=== PATIENT | female | born 1955 | race African-American/Black ===

== ENCOUNTER 2017-01-21 12:36 | Inpatient (IN) | payer SELFPAY ==
[~2017-01-21] VITALS: Ht 165.1 cm; Wt 87.8 kg
[~2017-01-21 12:36] MED LIST: OLAN10TA3 PO; RISP1 PO
[2017-01-21 13:24] LABS: BASOPHILS # (AUTO) 0.09 K/uL (0.00-0.20); BASOPHILS % (AUTO) 2.4 % (0.0-2.0); EOSINOPHILS % (AUTO) 2.77 % (1.0-6.0); HEMATOCRIT 42.1 % (36-46); HEMOGLOBIN 13.9 g/dL (12.0-16.0); LYMPHOCYTES # (AUTO) 1.3 K/uL (1.0-4.8); LYMPHOCYTES % (AUTO) 35.6 % (22.0-44.0); MEAN CORPUSCULAR HEMOGLOBIN 29.2 pg (26.0-34.0); MEAN CORPUSCULAR VOLUME 88 fL (80-100); MONOCYTES # (AUTO) 0.3 K/uL (0.1-1.0); MONOCYTES % (AUTO) 7.5 % (2.0-9.0); NEUTROPHILS # (AUTO) 1.9 K/uL (1.8-7.7); NEUTROPHILS % (AUTO) 51.7 % (40.0-70.0); PLATELET COUNT (AUTO) 273 K/uL (150-450); RED BLOOD CELL COUNT(AUTO) 4.76 MIL/uL (4.00-5.20); RED CELL DISTRIBUTION WIDTH 15.5 % (11.5-14.5); WHITE BLOOD COUNT (AUTO) 3.7 K/uL (4.5-11.0)
[2017-01-21 13:33] LABS: SALICYLATE 4.3 mg/dL (2.8-20.0)
[2017-01-21 13:34] LABS: ANION GAP 7 mmol/L (8-16); CALCIUM, TOTAL 9.6 mg/dL (8.8-10.5); CARBON DIOXIDE 26 mmol/L (22-29); CHLORIDE 106 mmol/L (98-107); CREATININE 0.74 mg/dL (0.60-1.30); GLOMERULAR FILTR. RATE CALC > 60 mL/min (>60); POTASSIUM 3.9 mmol/L (3.5-5.1); SODIUM SERUM 139 mmol/L (136-145); UREA NITROGEN, BLOOD 19 mg/dL (7-18)
[2017-01-21 13:44] LABS: TROPONIN I < 0.02 ng/mL (0.00-0.05)
[2017-01-21 13:48] LABS: B-TYPE NATRIURETIC PEPTIDE 11 pg/mL (0-100)
[2017-01-21 13:52] LABS: APPEARANCE,URINE CLEAR (CLEAR); GLUCOSE, URINE (UA) NEGATIVE (NEGATIVE); KETONES,URINE NEGATIVE (NEGATIVE); LEUKOCYTE ESTERASE ,URINE NEGATIVE (NEGATIVE); OCCULT BLOOD,URINE NEGATIVE (NEGATIVE); PH,URINE 5.5 (5.0-8.0); PROTEIN,URINE NEGATIVE (NEGATIVE)
[2017-01-21 13:54] LABS: ADD UA MICROSCOPIC NO
[2017-01-21 13:59] LABS: ALANINE AMINOTRANSFERASE 18 U/L (12-78); ALBUMIN 3.4 g/dL (3.4-5.0); AMMONIA 31 umol/L (11-32); ASPARTATE AMINOTRANSFERASE 15 U/L (15-37); BILIRUBIN,TOTAL 0.3 mg/dL (0.1-1.0); CREATINE KINASE MB 1.1 ng/mL (0-5); CREATINE KINASE, TOTAL 86 U/L (26-192); TOTAL PROTEIN, SERUM 7.2 g/dL (6.4-8.2)
[2017-01-21 14:13] LABS: ACETAMINOPHEN < 2 mcg/mL (10-30)
[2017-01-21] MEDS ORDERED: ACETAMINOPHEN 325 MG TABLET PO PRN ×2 (15:15→18:15)
[2017-01-21] MEDS ORDERED: 0.9% SODIUM CHLORIDE 10 ML SYRINGE IVP PRN (15:15)
[2017-01-21] MEDS ORDERED: ONDANSETRON HCL 4 MG/2 ML VIAL IVP PRN ×2 (15:15→18:15)
[2017-01-21 21:51] VITALS: BP 149/96
[2017-01-22 00:04] VITALS: BP 148/71
[2017-01-22 04:47] VITALS: BP 149/82
[2017-01-22 08:00] VITALS: BP 130/100
[2017-01-22] MEDS ORDERED: IBUPROFEN 400 MG TABLET PO PRN (09:30)
[2017-01-22 11:24] LABS: APPEARANCE,URINE CLOUDY (CLEAR); GLUCOSE, URINE (UA) NEGATIVE (NEGATIVE); KETONES,URINE NEGATIVE (NEGATIVE); LEUKOCYTE ESTERASE ,URINE TRACE (NEGATIVE); OCCULT BLOOD,URINE MODERATE (NEGATIVE); PH,URINE 5.5 (5.0-8.0); PROTEIN,URINE TRACE (NEGATIVE)
[2017-01-22] MEDS: PANTOPRAZOLE SODIUM 40 MG DR TABLET PO SCH (11:53)
[2017-01-22] MEDS: RisperiDONE 1 MG TABLET PO SCH ×2 (11:53→19:58)
[2017-01-22] MEDS: HEPARIN SODIUM,PORCINE 5,000 UNITS/ML VIAL SQ SCH ×4 (11:53→23:48)
[2017-01-22 13:22] LABS: ADD UA MICROSCOPIC YES
[2017-01-22 13:26] LABS: SQUAMOUS EPITHELIAL CELL,UR Rare /LPF (None Seen)
[2017-01-22 13:31] VITALS: BP 96/58
[2017-01-22 18:13] VITALS: BP 128/82
[2017-01-22 19:15] VITALS: BP 108/71
[2017-01-22] MEDS: OLANZapine 10 MG TABLET PO SCH (19:58)
[2017-01-23 06:11] VITALS: BP 121/79
[2017-01-23 06:40] LABS: BASOPHILS % (AUTO) 0.5 % (0.0-2.0); EOSINOPHILS % (AUTO) 2.4 % (1.0-6.0); HEMATOCRIT 38.8 % (36-46); HEMOGLOBIN 12.3 g/dL (12.0-16.0); LYMPHOCYTES # (AUTO) 1.6 K/uL (1.0-4.8); LYMPHOCYTES % (AUTO) 39.2 % (22.0-44.0); MEAN CORPUSCULAR HEMOGLOBIN 28.6 pg (26.0-34.0); MEAN CORPUSCULAR HGB CONC 31.8 G/dL (31.0-37.0); MEAN CORPUSCULAR VOLUME 90 fL (80-100); MONOCYTES # (AUTO) 0.4 K/uL (0.1-1.0); MONOCYTES % (AUTO) 8.9 % (2.0-9.0); PLATELET COUNT (AUTO) 269 K/uL (150-450); RED CELL DISTRIBUTION WIDTH 15.1 % (11.5-14.5); WHITE BLOOD COUNT (AUTO) 4.2 K/uL (4.5-11.0)
[2017-01-23 07:08] LABS: ALANINE AMINOTRANSFERASE 13 U/L (12-78); ALBUMIN 2.7 g/dL (3.4-5.0); ANION GAP 7 mmol/L (8-16); ASPARTATE AMINOTRANSFERASE 7 U/L (15-37); BILIRUBIN,TOTAL 0.1 mg/dL (0.1-1.0); CALCIUM, TOTAL 9.2 mg/dL (8.8-10.5); CARBON DIOXIDE 27 mmol/L (22-29); CHLORIDE 109 mmol/L (98-107); CHOL/HDL RATIO 2.6 (3.9-5.7); CREATININE 0.92 mg/dL (0.60-1.30); GLOMERULAR FILTR. RATE CALC > 60 mL/min (>60); POTASSIUM 4.2 mmol/L (3.5-5.1); SODIUM SERUM 143 mmol/L (136-145); THYROID STIMULATING HORMONE 2.47 uIU/mL (0.36-3.74); TOTAL PROTEIN, SERUM 6.1 g/dL (6.4-8.2); UREA NITROGEN, BLOOD 20 mg/dL (7-18)
[2017-01-23 07:29] VITALS: BP 112/68
[2017-01-23] MEDS: HEPARIN SODIUM,PORCINE 5,000 UNITS/ML VIAL SQ SCH ×3 (08:04→23:39)
[2017-01-23] MEDS: OxyCODONE HCL/ACETAMINOPHEN 5-325 MG TABLET PO PRN ×2 (08:04→16:27)
[2017-01-23] MEDS: RisperiDONE 1 MG TABLET PO SCH ×2 (08:04→20:06)
[2017-01-23] MEDS: PANTOPRAZOLE SODIUM 40 MG DR TABLET PO SCH (08:04)
[2017-01-23 11:04] VITALS: BP 108/77
[2017-01-23 15:16] VITALS: BP 116/76
[2017-01-23 20:04] VITALS: BP 111/72
[2017-01-23] MEDS: OLANZapine 10 MG TABLET PO SCH (20:06)
[2017-01-24 05:26] VITALS: BP 119/70
[2017-01-24] MEDS: HEPARIN SODIUM,PORCINE 5,000 UNITS/ML VIAL SQ SCH ×3 (08:58→22:52)
[2017-01-24] MEDS: PANTOPRAZOLE SODIUM 40 MG DR TABLET PO SCH (08:58)
[2017-01-24] MEDS: RisperiDONE 1 MG TABLET PO SCH ×2 (08:58→22:52)
[2017-01-24 09:03] VITALS: BP 131/80
[2017-01-24 12:01] VITALS: BP 127/79
[2017-01-24 15:56] VITALS: BP 121/75
[2017-01-24] MEDS: OLANZapine 10 MG TABLET PO SCH (22:52)
[2017-01-24 22:57] VITALS: BP 144/96
[2017-01-25 04:56] VITALS: BP 133/90
[2017-01-25 08:14] VITALS: BP 132/80
[2017-01-25] MEDS: RisperiDONE 1 MG TABLET PO SCH (08:17)
[2017-01-25] MEDS: HEPARIN SODIUM,PORCINE 5,000 UNITS/ML VIAL SQ SCH (08:17)
[2017-01-25] MEDS: PANTOPRAZOLE SODIUM 40 MG DR TABLET PO SCH (08:17)
[2017-01-25 11:56] VITALS: BP 123/87
== END 2017-01-25 14:37 | disposition home or self-care (01) | DRG 92 ==
LOC: EMS 12:37 → 5S 18:27 → 6N 01-22 19:15
PROVIDERS: ADMIT Hospitalist; ATTEND Hospitalist
DX: G92 Toxic encephalopathy (principal); F20.0 Paranoid schizophrenia; F12.90 Cannabis use, unspecified, uncomplicated; F19.10 Other psychoactive substance abuse, uncomplicated; R41.82 Altered mental status, unspecified; I10 Essential (primary) hypertension; Z59.0 Homelessness; Z79.899 Other long term (current) drug therapy; Z91.19 Patient's noncompliance with other medical treatment and regimen
CPT/HCPCS: 51702; 70450; 80307; 83036; 84443; 93005; 99291; G0480; G0481; J1644

== ENCOUNTER 2017-03-11 09:06 | Inpatient (IN) | payer MEDICAID ==
[~2017-03-11] VITALS: Ht 177.8 cm; Wt 92.5 kg
[2017-03-11 09:22] LABS: BASOPHILS % (AUTO) 0.4 % (0.0-2.0); EOSINOPHILS % (AUTO) 1.7 % (1.0-6.0); HEMOGLOBIN 12.5 g/dL (12.0-16.0); LYMPHOCYTES # (AUTO) 1.9 K/uL (1.0-4.8); LYMPHOCYTES % (AUTO) 25.4 % (22.0-44.0); MEAN CORPUSCULAR HGB CONC 32.1 G/dL (31.0-37.0); MEAN CORPUSCULAR VOLUME 87 fL (80-100); MONOCYTES # (AUTO) 0.3 K/uL (0.1-1.0); MONOCYTES % (AUTO) 4.5 % (2.0-9.0); PLATELET COUNT (AUTO) 241 K/uL (150-450); RED BLOOD CELL COUNT(AUTO) 4.47 MIL/uL (4.00-5.20); RED CELL DISTRIBUTION WIDTH 16.7 % (11.5-14.5); WHITE BLOOD COUNT (AUTO) 7.3 K/uL (4.5-11.0)
[2017-03-11 09:32] LABS: ANION GAP 10 mmol/L (8-16); CALCIUM, TOTAL 9.4 mg/dL (8.8-10.5); CARBON DIOXIDE 27 mmol/L (22-29); CHLORIDE 108 mmol/L (98-107); CREATININE 0.84 mg/dL (0.60-1.30); GLOMERULAR FILTR. RATE CALC > 60 mL/min (>60); POTASSIUM 3.8 mmol/L (3.5-5.1); SODIUM SERUM 145 mmol/L (136-145); UREA NITROGEN, BLOOD 24 mg/dL (7-18)
[2017-03-11 09:38] LABS: ALANINE AMINOTRANSFERASE 63 U/L (12-78); ALBUMIN 3.9 g/dL (3.4-5.0); ASPARTATE AMINOTRANSFERASE 27 U/L (15-37); BILIRUBIN,TOTAL 0.2 mg/dL (0.1-1.0); TOTAL PROTEIN, SERUM 7.8 g/dL (6.4-8.2)
[2017-03-11] MEDS ORDERED: HALOPERIDOL LACTATE 5 MG/ML VIAL IM ONE (11:00)
[2017-03-11] MEDS ORDERED: DiphenhydrAMINE HCL 50 MG/ML VIAL IM ONE (11:00)
[2017-03-11] MEDS ORDERED: LORazepam 2 MG/ML VIAL IM ONE (11:00)
[2017-03-11 16:14] VITALS: BP 136/88
[2017-03-11] MEDS: LORazepam 1 MG TABLET PO PRN (16:23)
[2017-03-11] MEDS: HALOPERIDOL 5 MG TABLET PO PRN (16:23)
[2017-03-11] MEDS ORDERED: IVERMECTIN 3 MG TABLET PO ONE (17:30)
[2017-03-11] MEDS: OLANZapine 10 MG TABLET PO SCH (20:33)
[2017-03-12 07:11] VITALS: BP 126/80
[2017-03-12] MEDS: HALOPERIDOL 5 MG TABLET PO PRN ×2 (08:16→16:42)
[2017-03-12] MEDS: LORazepam 1 MG TABLET PO PRN ×2 (08:16→16:42)
[2017-03-12] MEDS ORDERED: MAGNESIUM HYDROXIDE SUSPENSION 30 ML UDCUP PO PRN (09:00)
[2017-03-12] MEDS ORDERED: BACITRACIN 28.4 GM OINTMENT TP PRN (09:00)
[2017-03-12] MEDS ORDERED: MAG HYDROX/AL HYDROX/SIMETH ES 30 ML SUSPENSION UDCUP PO PRN (09:00)
[2017-03-12] MEDS ORDERED: ONDANSETRON HCL 4 MG TABLET PO PRN (09:00)
[2017-03-12] MEDS ORDERED: IBUPROFEN 600 MG TABLET PO PRN (09:00)
[2017-03-12] MEDS ORDERED: LOPERAMIDE HCL 2 MG CAPSULE PO PRN (09:00)
[2017-03-12] MEDS ORDERED: PETROLATUM,WHITE 71 GM JELLY TP PRN (09:00)
[2017-03-12] MEDS ORDERED: CloNIDine HCL 0.1 MG TABLET PO PRN (09:00)
[2017-03-12 09:17] LABS: CHOL/HDL RATIO 2.1 (3.9-5.7)
[2017-03-12 16:35] VITALS: BP 123/79
[2017-03-12] MEDS: TERBINAFINE HCL 1% 30 GM CREAM TP SCH (16:36)
[2017-03-12] MEDS: MAGNESIUM SULFATE 454 GM BOX TP SCH (16:36)
[2017-03-12] MEDS ORDERED: RisperiDONE 1 MG TABLET PO SCH (17:00)
[2017-03-12] MEDS: OLANZapine 10 MG TABLET PO SCH (20:06)
[2017-03-13 06:26] VITALS: BP 119/72
[2017-03-13] MEDS: LISINOPRIL 5 MG TABLET PO SCH (08:10)
[2017-03-13] MEDS: LORazepam 1 MG TABLET PO PRN ×2 (08:10→15:58)
[2017-03-13] MEDS: TERBINAFINE HCL 1% 30 GM CREAM TP SCH ×2 (08:10→16:39)
[2017-03-13] MEDS: HALOPERIDOL 5 MG TABLET PO PRN (08:10)
[2017-03-13] MEDS: MAGNESIUM SULFATE 454 GM BOX TP SCH (08:10)
[2017-03-13 08:38] VITALS: BP 125/72
[2017-03-13 16:49] VITALS: BP 128/70
[2017-03-13] MEDS: ACETAMINOPHEN 325 MG TABLET PO PRN (16:51)
[2017-03-13] MEDS: OLANZapine 10 MG TABLET PO SCH (20:37)
[2017-03-14] MEDS: BENZOCAINE/MENTHOL LOZENGE MM PRN ×2 (01:56→16:24)
[2017-03-14 06:45] VITALS: BP 138/98
[2017-03-14 08:47] VITALS: BP 134/87
[2017-03-14] MEDS: TERBINAFINE HCL 1% 30 GM CREAM TP SCH ×2 (08:56→16:26)
[2017-03-14] MEDS: LISINOPRIL 5 MG TABLET PO SCH (08:57)
[2017-03-14] MEDS: LORazepam 1 MG TABLET PO PRN ×2 (08:57→16:24)
[2017-03-14] MEDS: HALOPERIDOL 5 MG TABLET PO PRN (08:57)
[2017-03-14] MEDS: MAGNESIUM SULFATE 454 GM BOX TP SCH (08:57)
[2017-03-14 16:09] VITALS: BP 141/89
[2017-03-14] MEDS: ALBUTEROL SULFATE HFA 90 MCG/PUFF 8 GM INHALER IH PRN (16:26)
[2017-03-14] MEDS: OLANZapine 10 MG TABLET PO SCH (20:06)
[2017-03-15 00:42] VITALS: BP 142/87
[2017-03-15] MEDS: ZOLPIDEM TARTRATE 10 MG TABLET PO PRN (00:43)
[2017-03-15] MEDS: ALBUTEROL SULFATE HFA 90 MCG/PUFF 8 GM INHALER IH PRN (06:20)
[2017-03-15 08:41] VITALS: BP 135/79
[2017-03-15] MEDS: MAGNESIUM SULFATE 454 GM BOX TP SCH (09:00)
[2017-03-15] MEDS: LISINOPRIL 5 MG TABLET PO SCH (09:04)
[2017-03-15] MEDS: DIVALPROEX SODIUM 250 MG ER TABLET PO SCH ×2 (09:04→17:32)
[2017-03-15] MEDS: TERBINAFINE HCL 1% 30 GM CREAM TP SCH ×2 (09:05→17:32)
[2017-03-15 16:00] VITALS: BP 141/75
[2017-03-15] MEDS: OLANZapine 10 MG TABLET PO SCH ×2 (20:50→20:55)
[2017-03-16 06:50] VITALS: BP 139/84
[2017-03-16 08:48] VITALS: BP 139/78
[2017-03-16] MEDS: LISINOPRIL 5 MG TABLET PO SCH (08:55)
[2017-03-16] MEDS: DIVALPROEX SODIUM 250 MG ER TABLET PO SCH ×2 (08:55→16:01)
[2017-03-16] MEDS: TERBINAFINE HCL 1% 30 GM CREAM TP SCH ×2 (08:56→16:01)
[2017-03-16] MEDS: MAGNESIUM SULFATE 454 GM BOX TP SCH (08:59)
[2017-03-16 16:00] VITALS: BP 112/68
[2017-03-16] MEDS: LORazepam 1 MG TABLET PO PRN (16:01)
[2017-03-16] MEDS: OLANZapine 10 MG TABLET PO SCH (20:23)
[2017-03-16] MEDS: ZOLPIDEM TARTRATE 10 MG TABLET PO PRN (21:03)
[2017-03-17 08:12] LABS: BASOPHILS % (AUTO) 0.4 % (0.0-2.0); EOSINOPHILS % (AUTO) 3.8 % (1.0-6.0); HEMATOCRIT 43.6 % (36-46); HEMOGLOBIN 13.9 g/dL (12.0-16.0); LYMPHOCYTES # (AUTO) 1.5 K/uL (1.0-4.8); LYMPHOCYTES % (AUTO) 34.7 % (22.0-44.0); MEAN CORPUSCULAR HEMOGLOBIN 28.1 pg (26.0-34.0); MEAN CORPUSCULAR HGB CONC 31.9 G/dL (31.0-37.0); MEAN CORPUSCULAR VOLUME 88 fL (80-100); MONOCYTES # (AUTO) 0.3 K/uL (0.1-1.0); MONOCYTES % (AUTO) 6.1 % (2.0-9.0); NEUTROPHILS # (AUTO) 2.4 K/uL (1.8-7.7); PLATELET COUNT (AUTO) 262 K/uL (150-450); RED BLOOD CELL COUNT(AUTO) 4.96 MIL/uL (4.00-5.20); WHITE BLOOD COUNT (AUTO) 4.3 K/uL (4.5-11.0)
[2017-03-17 08:21] VITALS: BP 109/57
[2017-03-17] MEDS: DIVALPROEX SODIUM 500 MG ER TABLET PO SCH ×2 (08:56→16:19)
[2017-03-17] MEDS: LORazepam 1 MG TABLET PO PRN ×2 (08:56→16:19)
[2017-03-17] MEDS: LISINOPRIL 5 MG TABLET PO SCH (08:56)
[2017-03-17 09:03] LABS: ALANINE AMINOTRANSFERASE 30 U/L (12-78); ALBUMIN 3.5 g/dL (3.4-5.0); ANION GAP 6 mmol/L (8-16); ASPARTATE AMINOTRANSFERASE 13 U/L (15-37); BILIRUBIN,TOTAL 0.2 mg/dL (0.1-1.0); CALCIUM, TOTAL 9.6 mg/dL (8.8-10.5); CARBON DIOXIDE 29 mmol/L (22-29); CHLORIDE 104 mmol/L (98-107); CREATININE 0.92 mg/dL (0.60-1.30); GLOMERULAR FILTR. RATE CALC > 60 mL/min (>60); POTASSIUM 4.4 mmol/L (3.5-5.1); SODIUM SERUM 139 mmol/L (136-145); THYROID STIMULATING HORMONE 3.28 uIU/mL (0.36-3.74); TOTAL PROTEIN, SERUM 7.5 g/dL (6.4-8.2); UREA NITROGEN, BLOOD 29 mg/dL (7-18); VALPROIC ACID 31 mcg/mL (50-100)
[2017-03-17] MEDS: MAGNESIUM SULFATE 454 GM BOX TP SCH (09:28)
[2017-03-17] MEDS: TERBINAFINE HCL 1% 30 GM CREAM TP SCH ×2 (09:28→16:19)
[2017-03-17 16:11] VITALS: BP 126/74
[2017-03-17] MEDS: ALBUTEROL SULFATE HFA 90 MCG/PUFF 8 GM INHALER IH PRN (19:19)
[2017-03-17] MEDS: OLANZapine 10 MG TABLET PO SCH (20:26)
[2017-03-17] MEDS: ZOLPIDEM TARTRATE 10 MG TABLET PO PRN (21:04)
[2017-03-18 08:38] VITALS: BP 130/62
[2017-03-18] MEDS: LISINOPRIL 5 MG TABLET PO SCH (09:57)
[2017-03-18] MEDS: DIVALPROEX SODIUM 500 MG ER TABLET PO SCH ×2 (09:57→17:03)
[2017-03-18] MEDS: TERBINAFINE HCL 1% 30 GM CREAM TP SCH ×2 (09:57→17:03)
[2017-03-18 16:00] VITALS: BP 118/63
[2017-03-18] MEDS: LORazepam 1 MG TABLET PO PRN (16:25)
[2017-03-18] MEDS: OLANZapine 10 MG TABLET PO SCH (20:25)
[2017-03-19 00:10] VITALS: BP 128/76
[2017-03-19] MEDS: ACETAMINOPHEN 325 MG TABLET PO PRN (00:12)
[2017-03-19] MEDS ORDERED: LISI-660 PO ×2 (08:14→12:23)
[2017-03-19] MEDS ORDERED: DIVA500T35 PO (08:14)
[2017-03-19] MEDS: LISINOPRIL 5 MG TABLET PO SCH (08:29)
[2017-03-19] MEDS: TERBINAFINE HCL 1% 30 GM CREAM TP SCH (08:29)
[2017-03-19] MEDS: DIVALPROEX SODIUM 500 MG ER TABLET PO SCH (08:29)
[2017-03-19 08:38] VITALS: BP 159/78
== END 2017-03-19 14:30 | disposition home or self-care (01) | DRG 750 ==
LOC: EMS 09:07 → EEVIPCON 09:07 → B3A 13:26
PROVIDERS: ADMIT Psychiatry & Neurology Psychiatry; ATTEND Psychiatry & Neurology Psychiatry
DX: F20.0 Paranoid schizophrenia (principal); I10 Essential (primary) hypertension; J44.9 Chronic obstructive pulmonary disease, unspecified; F10.10 Alcohol abuse, uncomplicated; B35.1 Tinea unguium; B35.3 Tinea pedis; K21.9 Gastro-esophageal reflux disease without esophagitis; Z72.0 Tobacco use; Y90.0 Blood alcohol level of less than 20 mg/100 ml; M19.90 Unspecified osteoarthritis, unspecified site; K59.00 Constipation, unspecified; G47.00 Insomnia, unspecified; Z91.14 Patient's other noncompliance with medication regimen
CPT/HCPCS: 84439; 84443; 96372; 99285; G0480; J1200; J1630; J2060; J3535

== ENCOUNTER 2018-08-23 15:43 | Emergency (ER) | payer MEDICAID, OTHER ==
[~2018-08-23] VITALS: Ht 167.6 cm; Wt 105.5 kg
[~2018-08-23 15:43] MED LIST changes: +LISI-660 PO; -RISP1 PO
[2018-08-23 16:51] VITALS: BP 144/101
[2018-08-23] MEDS ORDERED: QUET25TA PO (16:53)
[2018-08-23] MEDS: CIPROFLOXACIN HCL 0.3% 2.5 ML OPHTHALMIC SOLUTION OU ONE (18:57)
[2018-08-23] MEDS: LISINOPRIL 10 MG TABLET PO ONE (19:13)
== END 2018-08-23 19:19 | disposition home or self-care (01) ==
LOC: EMS 15:44
DX: B30.3 Acute epidemic hemorrhagic conjunctivitis (enteroviral) (principal); I10 Essential (primary) hypertension; F20.9 Schizophrenia, unspecified

== ENCOUNTER 2019-04-19 17:41 | Emergency (ER) | payer OTHER ==
[~2019-04-19] VITALS: Ht 167.6 cm; Wt 84.1 kg
[~2019-04-19 17:41] MED LIST changes: +QUET25TA PO
[2019-04-19 17:54] VITALS: BP 160/119
[2019-04-19] MEDS ORDERED: PALI819S IM (17:59)
[2019-04-19] MEDS ORDERED: HALOPERIDOL 5 MG TABLET PO ONE (18:45)
[2019-04-19] MEDS ORDERED: LORazepam 2 MG TABLET PO ONE (18:45)
[2019-04-19] MEDS ORDERED: LISINOPRIL 10 MG TABLET PO ONE (18:45)
== END 2019-04-19 19:44 | disposition left against medical advice (07) ==
LOC: EMS 17:42
DX: F20.9 Schizophrenia, unspecified (principal); I10 Essential (primary) hypertension; Z79.899 Other long term (current) drug therapy; Z53.20 Procedure and treatment not carried out because of patient's decision for unspecified reasons

== ENCOUNTER 2019-09-04 16:14 | Inpatient (IN) | payer MEDICAID, OTHER ==
[~2019-09-04] VITALS: Ht 165.1 cm; Wt 100.7 kg
[~2019-09-04 16:14] MED LIST changes: +PALI819S IM
[2019-09-04] MEDS ORDERED: HALOPERIDOL 5 MG TABLET PO PRN (16:45)
[2019-09-04] MEDS ORDERED: ZOLPIDEM TARTRATE 10 MG TABLET PO PRN (16:45)
[2019-09-04] MEDS ORDERED: PNEUMOCOCCAL VACCINE POLYVALENT 0.5 ML VIAL [PPSV23] IM ONE (17:30)
[2019-09-04] MEDS ORDERED: INFLUENZA VIRUS VACCINE QVS 2019-20 (3YR+)/PF 60 MCG/0.5 ML SYRINGE IM ONE (17:30)
[2019-09-04] MEDS: LORazepam 2 MG TABLET PO PRN (17:55)
[2019-09-04 18:43] VITALS: BP 144/94
[2019-09-04 19:43] VITALS: BP 138/85
[2019-09-05] VITALS: BP 129/79
[2019-09-05] MEDS: LISINOPRIL 5 MG TABLET PO SCH (08:42)
[2019-09-05 08:53] VITALS: BP 131/79
[2019-09-05] MEDS ORDERED: IBUPROFEN 600 MG TABLET PO PRN (09:15)
[2019-09-05] MEDS ORDERED: ACETAMINOPHEN 325 MG TABLET PO PRN (09:15)
[2019-09-05] MEDS ORDERED: CloNIDine HCL 0.1 MG TABLET PO PRN (09:15)
[2019-09-05] MEDS ORDERED: BACITRACIN 28.4 GM OINTMENT TP PRN (09:15)
[2019-09-05] MEDS ORDERED: ONDANSETRON HCL 4 MG TABLET PO PRN (09:15)
[2019-09-05] MEDS ORDERED: ALBUTEROL SULFATE HFA 90 MCG/PUFF 8 GM INHALER IH PRN (09:15)
[2019-09-05] MEDS ORDERED: BENZOCAINE/MENTHOL LOZENGE MM PRN (09:15)
[2019-09-05] MEDS ORDERED: PETROLATUM,WHITE 28 GM JELLY TP PRN (09:15)
[2019-09-05] MEDS ORDERED: LOPERAMIDE HCL 2 MG CAPSULE PO PRN (09:15)
[2019-09-05] MEDS ORDERED: MAGNESIUM HYDROXIDE SUSPENSION 30 ML UDCUP PO PRN (09:15)
[2019-09-05 16:16] VITALS: BP 121/69
[2019-09-05] MEDS ORDERED: NICOTINE 21 MG/24 HOUR PATCH TD SCH (18:15)
[2019-09-05] MEDS: NICOTINE 21 MG/24 HOUR PATCH TD SCH (19:41)
[2019-09-05] MEDS: RisperiDONE 2 MG TABLET PO SCH (20:04)
[2019-09-05] MEDS: LORazepam 2 MG TABLET PO PRN (20:04)
[2019-09-05] MEDS: DIVALPROEX SODIUM 500 MG DR TABLET PO SCH (20:05)
[2019-09-06 06:11] VITALS: BP 139/83
[2019-09-06 08:11] VITALS: BP 145/89
[2019-09-06] MEDS: DIVALPROEX SODIUM 500 MG DR TABLET PO SCH ×2 (08:42→20:38)
[2019-09-06] MEDS: DOCUSATE SODIUM 100 MG CAPSULE PO SCH (08:42)
[2019-09-06] MEDS: OMEPRAZOLE 20 MG CAPSULE PO SCH (08:43)
[2019-09-06] MEDS: RisperiDONE 2 MG TABLET PO SCH ×2 (08:43→20:38)
[2019-09-06] MEDS: LISINOPRIL 5 MG TABLET PO SCH (08:43)
[2019-09-06] MEDS: NICOTINE 21 MG/24 HOUR PATCH TD SCH (08:43)
[2019-09-06 16:34] VITALS: BP 154/100
[2019-09-07] MEDS: DIVALPROEX SODIUM 500 MG DR TABLET PO SCH ×2 (08:00→20:32)
[2019-09-07] MEDS: OMEPRAZOLE 20 MG CAPSULE PO SCH (08:00)
[2019-09-07] MEDS: LISINOPRIL 5 MG TABLET PO SCH (08:00)
[2019-09-07] MEDS: RisperiDONE 2 MG TABLET PO SCH ×2 (08:00→20:32)
[2019-09-07] MEDS: DOCUSATE SODIUM 100 MG CAPSULE PO SCH (08:01)
[2019-09-07] MEDS: NICOTINE 21 MG/24 HOUR PATCH TD SCH (08:10)
[2019-09-07 08:23] VITALS: BP 161/101
[2019-09-07 09:39] VITALS: BP 128/89
[2019-09-07 16:43] VITALS: BP 153/89
[2019-09-07] MEDS: LORazepam 2 MG TABLET PO PRN (18:07)
[2019-09-07] MEDS: MAG HYDROX/AL HYDROX/SIMETH ES 30 ML SUSPENSION UDCUP PO PRN (18:07)
[2019-09-08 06:34] VITALS: BP 159/99
[2019-09-08] MEDS: RisperiDONE 2 MG TABLET PO SCH ×3 (08:57→20:49)
[2019-09-08] MEDS: OMEPRAZOLE 20 MG CAPSULE PO SCH ×2 (08:57→09:00)
[2019-09-08] MEDS: LISINOPRIL 5 MG TABLET PO SCH ×2 (08:57→09:00)
[2019-09-08] MEDS: DOCUSATE SODIUM 100 MG CAPSULE PO SCH ×2 (08:57→09:00)
[2019-09-08] MEDS: DIVALPROEX SODIUM 500 MG DR TABLET PO SCH ×3 (08:58→20:49)
[2019-09-08] MEDS: NICOTINE 21 MG/24 HOUR PATCH TD SCH (09:00)
[2019-09-08 16:40] VITALS: BP 143/102
[2019-09-08] MEDS: LORazepam 2 MG TABLET PO PRN (20:49)
[2019-09-08] MEDS: MAG HYDROX/AL HYDROX/SIMETH ES 30 ML SUSPENSION UDCUP PO PRN (20:49)
[2019-09-09 06:30] VITALS: BP 140/82
[2019-09-09] MEDS: LISINOPRIL 5 MG TABLET PO SCH (08:31)
[2019-09-09] MEDS: RisperiDONE 2 MG TABLET PO SCH ×2 (08:31→20:40)
[2019-09-09 08:46] VITALS: BP 147/89
[2019-09-09] MEDS: NICOTINE 21 MG/24 HOUR PATCH TD SCH (09:00)
[2019-09-09] MEDS: OMEPRAZOLE 20 MG CAPSULE PO SCH (09:00)
[2019-09-09] MEDS: DIVALPROEX SODIUM 500 MG DR TABLET PO SCH ×2 (09:00→20:40)
[2019-09-09] MEDS: DOCUSATE SODIUM 100 MG CAPSULE PO SCH (09:00)
[2019-09-09 16:28] VITALS: BP 138/90
[2019-09-10] MEDS: LISINOPRIL 5 MG TABLET PO SCH (09:00)
[2019-09-10] MEDS: OMEPRAZOLE 20 MG CAPSULE PO SCH (09:00)
[2019-09-10] MEDS: NICOTINE 21 MG/24 HOUR PATCH TD SCH (09:00)
[2019-09-10] MEDS: RisperiDONE 3 MG TABLET PO SCH ×2 (09:00→20:26)
[2019-09-10] MEDS: DOCUSATE SODIUM 100 MG CAPSULE PO SCH (09:00)
[2019-09-10] MEDS: DIVALPROEX SODIUM 500 MG DR TABLET PO SCH ×2 (09:00→20:26)
[2019-09-10 16:19] VITALS: BP 133/79
[2019-09-10] MEDS: MAG HYDROX/AL HYDROX/SIMETH ES 30 ML SUSPENSION UDCUP PO PRN (16:22)
[2019-09-10] MEDS: LORazepam 2 MG TABLET PO PRN (17:25)
[2019-09-10] MEDS ORDERED: NICOTINE 21 MG/24 HOUR PATCH TD PRN (21:45)
[2019-09-10] MEDS ORDERED: DOCUSATE SODIUM 100 MG CAPSULE PO PRN (21:45)
[2019-09-10] MEDS ORDERED: OMEPRAZOLE 20 MG CAPSULE PO PRN (21:45)
[2019-09-11 05:33] VITALS: BP 110/65
[2019-09-11 08:20] VITALS: BP 162/77
[2019-09-11] MEDS: RisperiDONE 3 MG TABLET PO SCH ×2 (08:23→20:57)
[2019-09-11] MEDS: DIVALPROEX SODIUM 500 MG DR TABLET PO SCH ×2 (08:23→20:57)
[2019-09-11] MEDS: LISINOPRIL 5 MG TABLET PO SCH (08:23)
[2019-09-11] MEDS: MAG HYDROX/AL HYDROX/SIMETH ES 30 ML SUSPENSION UDCUP PO PRN (15:06)
[2019-09-11 16:30] VITALS: BP 138/76
[2019-09-11] MEDS: LORazepam 2 MG TABLET PO PRN (19:36)
[2019-09-11 19:40] VITALS: BP 147/97
[2019-09-11 20:36] VITALS: BP 138/85
[2019-09-12 02:20] VITALS: BP 138/79
[2019-09-12] MEDS: RisperiDONE 3 MG TABLET PO SCH ×2 (08:08→20:27)
[2019-09-12] MEDS: DIVALPROEX SODIUM 500 MG DR TABLET PO SCH ×2 (08:08→20:27)
[2019-09-12] MEDS: LISINOPRIL 5 MG TABLET PO SCH (08:08)
[2019-09-12 08:13] VITALS: BP 112/69
[2019-09-13 08:14] VITALS: BP 137/98
[2019-09-13] MEDS: LISINOPRIL 5 MG TABLET PO SCH (08:45)
[2019-09-13] MEDS: DIVALPROEX SODIUM 500 MG DR TABLET PO SCH (08:46)
[2019-09-13] MEDS: RisperiDONE 3 MG TABLET PO SCH (08:46)
[2019-09-14 08:14] VITALS: BP 126/72
[2019-09-14] MEDS: DIVALPROEX SODIUM 500 MG DR TABLET PO SCH ×2 (08:34→20:38)
[2019-09-14] MEDS: RisperiDONE 3 MG TABLET PO SCH ×2 (08:35→20:38)
[2019-09-14] MEDS: LISINOPRIL 5 MG TABLET PO SCH (08:35)
[2019-09-14] MEDS: MAG HYDROX/AL HYDROX/SIMETH ES 30 ML SUSPENSION UDCUP PO PRN (14:51)
[2019-09-14 16:08] VITALS: BP 147/95
[2019-09-14] MEDS: LORazepam 2 MG TABLET PO PRN (17:13)
[2019-09-15 08:17] VITALS: BP 158/89
[2019-09-15] MEDS: LISINOPRIL 5 MG TABLET PO SCH (08:18)
[2019-09-15] MEDS: DIVALPROEX SODIUM 500 MG DR TABLET PO SCH ×2 (08:18→20:21)
[2019-09-15] MEDS: RisperiDONE 3 MG TABLET PO SCH ×2 (08:18→20:21)
[2019-09-15 10:41] VITALS: BP 137/80
[2019-09-15] MEDS: MAG HYDROX/AL HYDROX/SIMETH ES 30 ML SUSPENSION UDCUP PO PRN (18:16)
[2019-09-15] MEDS: LORazepam 2 MG TABLET PO PRN (18:16)
[2019-09-16 00:33] VITALS: BP 133/97
[2019-09-16] MEDS: LORazepam 2 MG TABLET PO PRN (00:34)
[2019-09-16 07:43] LABS: BAND NEUTROPHILS % (MANUAL) 0 % (0-5)
[2019-09-16 07:46] LABS: BASOPHILS % (AUTO) 0.4 % (0.0-2.0); EOSINOPHILS % (AUTO) 1.4 % (1.0-6.0); HEMATOCRIT 39.8 % (36-46); HEMOGLOBIN 13.3 g/dL (12.0-16.0); LYMPHOCYTES # (AUTO) 1.3 K/uL (1.0-4.8); LYMPHOCYTES % (AUTO) 30.2 % (22.0-44.0); MEAN CORPUSCULAR HEMOGLOBIN 30.7 pg (26.0-34.0); MEAN CORPUSCULAR HGB CONC 33.5 G/dL (31.0-37.0); MEAN CORPUSCULAR VOLUME 92 fL (80-100); MONOCYTES # (AUTO) 0.4 K/uL (0.1-1.0); NEUTROPHILS # (AUTO) 2.5 K/uL (1.8-7.7); PLATELET COUNT (AUTO) 232 K/uL (150-450); RED BLOOD CELL COUNT(AUTO) 4.35 MIL/uL (4.00-5.20); RED CELL DISTRIBUTION WIDTH 15.1 % (11.5-14.5)
[2019-09-16 08:00] LABS: HEMOGLOBIN A1C 5.9 % (4.5-6.2)
[2019-09-16 08:09] LABS: ALANINE AMINOTRANSFERASE 19 U/L (12-78); ALBUMIN 3.5 g/dL (3.4-5.0); ALKALINE PHOSPHATASE 88 U/L (46-116); ANION GAP 6 mmol/L (8-16); ASPARTATE AMINOTRANSFERASE 8 U/L (15-37); BILIRUBIN,TOTAL 0.2 mg/dL (0.1-1.0); CALCIUM, TOTAL 9.6 mg/dL (8.8-10.5); CARBON DIOXIDE 30 mmol/L (22-29); CHLORIDE 103 mmol/L (98-107); CHOL/HDL RATIO 2.6 (3.9-5.7); CHOLESTEROL 166 mg/dL (131-200); CREATININE 0.89 mg/dL (0.60-1.30); FREE T4 (FREE THYROXINE) 0.94 ng/dL (0.76-1.46); GLOMERULAR FILTR. RATE CALC > 60 mL/min (>60); GLUCOSE,RANDOM 88 mg/dL (70-110); HDL CHOLESTEROL 63 mg/dL (40-60); LDL CHOL (CALC.) 93 mg/dL (0-130); PHOSPHORUS 3.4 mg/dL (2.5-4.9); POTASSIUM 4.3 mmol/L (3.5-5.1); SODIUM SERUM 139 mmol/L (136-145); THYROID STIMULATING HORMONE 4.45 uIU/mL (0.36-3.74); TOTAL PROTEIN, SERUM 7.4 g/dL (6.4-8.2); TRIGLYCERIDES 52 mg/dL (15-150); UREA NITROGEN, BLOOD 17 mg/dL (7-18)
[2019-09-16] MEDS: DIVALPROEX SODIUM 500 MG DR TABLET PO SCH ×2 (08:18→20:19)
[2019-09-16] MEDS: LISINOPRIL 5 MG TABLET PO SCH (08:18)
[2019-09-16] MEDS: RisperiDONE 3 MG TABLET PO SCH ×2 (08:18→20:19)
[2019-09-16 10:07] LABS: EOSINOPHILS % (MANUAL) 2 % (1-6); LYMPHOCYTES % (MANUAL) 27 % (22-44); MONOCYTES % (MANUAL) 8 % (2-9); SEGMENTED NEUTROPHILS % 63 % (40-70)
[2019-09-16 16:08] VITALS: BP 142/100
[2019-09-17 05:00] VITALS: BP 140/86
[2019-09-17] MEDS: LISINOPRIL 5 MG TABLET PO SCH (08:14)
[2019-09-17] MEDS: RisperiDONE 3 MG TABLET PO SCH ×2 (08:14→20:45)
[2019-09-17] MEDS: DIVALPROEX SODIUM 500 MG DR TABLET PO SCH ×2 (08:14→20:45)
[2019-09-18] MEDS: LEVOTHYROXINE SODIUM 50 MCG TABLET PO SCH (06:26)
[2019-09-18] MEDS: DIVALPROEX SODIUM 500 MG DR TABLET PO SCH ×2 (08:08→20:25)
[2019-09-18] MEDS: LISINOPRIL 5 MG TABLET PO SCH (08:08)
[2019-09-18] MEDS: RisperiDONE 3 MG TABLET PO SCH ×2 (08:08→20:25)
[2019-09-18] MEDS: LORazepam 2 MG TABLET PO PRN (16:10)
[2019-09-19] MEDS: LEVOTHYROXINE SODIUM 50 MCG TABLET PO SCH (06:30)
[2019-09-19 08:30] VITALS: BP 120/71
[2019-09-19] MEDS: DIVALPROEX SODIUM 500 MG DR TABLET PO SCH (08:33)
[2019-09-19] MEDS: LISINOPRIL 5 MG TABLET PO SCH (08:34)
[2019-09-19] MEDS: RisperiDONE 3 MG TABLET PO SCH (08:34)
[2019-09-19] MEDS ORDERED: DIVA-78 PO (11:16)
[2019-09-19] MEDS ORDERED: RISP3 PO (11:16)
[2019-09-19] MEDS: MAG HYDROX/AL HYDROX/SIMETH ES 30 ML SUSPENSION UDCUP PO PRN (12:53)
[2019-09-19] MEDS ORDERED: LEVO50 PO (13:40)
== END 2019-09-19 17:20 | disposition home or self-care (01) | DRG 750 ==
LOC: B3A 17:14
DX: F20.1 Disorganized schizophrenia (principal); Z91.19 Patient's noncompliance with other medical treatment and regimen; B35.1 Tinea unguium; F10.10 Alcohol abuse, uncomplicated; F17.210 Nicotine dependence, cigarettes, uncomplicated; G47.00 Insomnia, unspecified; I10 Essential (primary) hypertension; J44.9 Chronic obstructive pulmonary disease, unspecified; M19.90 Unspecified osteoarthritis, unspecified site; K21.9 Gastro-esophageal reflux disease without esophagitis; K59.00 Constipation, unspecified; Z79.899 Other long term (current) drug therapy; Z23 Encounter for immunization
CPT/HCPCS: 83036; 83735; 84100; 84439; 84443; 85007; 90686; 90732